=== PATIENT | male | born 1965 | race Hispanic/Latino ===

== ENCOUNTER 2018-02-05 11:20 | Emergency (ER) | payer SELFPAY ==
[2018-02-05] MEDS ORDERED: LIDOCAINE HCL 1% 20 ML VIAL ONE (11:34)
== END 2018-02-05 12:20 | disposition home or self-care (01) ==
LOC: EDH 11:20
DX: S61.011A Laceration without foreign body of right thumb without damage to nail, initial encounter (principal); I10 Essential (primary) hypertension; E11.9 Type 2 diabetes mellitus without complications; Z87.891 Personal history of nicotine dependence; W18.39XA Other fall on same level, initial encounter; Y93.89 Activity, other specified; Y92.59 Other trade areas as the place of occurrence of the external cause; Y99.8 Other external cause status
CPT/HCPCS: 12001